=== PATIENT | male | born 1970 | race Caucasian/White ===

== ENCOUNTER 2019-08-10 20:04 | Emergency (ER) | payer MEDICAID ==
[~2019-08-10] VITALS: Ht 188 cm; Wt 120.8 kg
[~2019-08-10 20:04] MED LIST: CARI350T PO; HYDR-4383 PO; NO HOME MEDS; PENI500T2 PO
[2019-08-10 20:05] VITALS: BP 115/79
[2019-08-10] MEDS ORDERED: ACET-2006 PO (20:49)
[2019-08-10] MEDS ORDERED: IBUP-1985 PO (20:49)
== END 2019-08-10 21:00 | disposition home or self-care (01) ==
LOC: ER 20:04
DX: M25.531 Pain in right wrist (principal); G89.29 Other chronic pain; Z98.890 Other specified postprocedural states; Z56.0 Unemployment, unspecified; Z88.6 Allergy status to analgesic agent; Z79.899 Other long term (current) drug therapy
CPT/HCPCS: 29125; 73110; 99283

== ENCOUNTER 2023-12-12 21:27 | Emergency (ER) | payer MEDICAID ==
[~2023-12-12] VITALS: Ht 188 cm; Wt 113.6 kg
[~2023-12-12 21:27] MED LIST changes: +IBUP-1985 PO
[2023-12-12] MEDS: acetaminophen 325mg tablet PO ONE (22:48)
[2023-12-12] MEDS: naproxen 500mg tablet PO ONE (22:48)
[2023-12-12] MEDS ORDERED: CYCL-1 PO (23:52)
[2023-12-13] MEDS ORDERED: HYDROcodone/acetaminophen 10/325mg tab PO ONE
[2023-12-13 00:15] VITALS: BP 136/85; PULSE 84; TEMP 97.9; O2SAT 98
[2023-12-13 00:20] VITALS: RESP 18
[2023-12-13] MEDS: cyclobenzaprine 10mg tablet PO ONE (00:20)
[2023-12-13] MEDS: HYDROcodone/acetaminophen 10/325mg tab PO ONE (00:20)
== END 2023-12-13 00:23 | disposition home or self-care (01) ==
LOC: ER 21:28
DX: S20.211A Contusion of right front wall of thorax, initial encounter (principal); G89.29 Other chronic pain; M54.9 Dorsalgia, unspecified; Z88.6 Allergy status to analgesic agent; Z79.1 Long term (current) use of non-steroidal anti-inflammatories (NSAID); Z79.899 Other long term (current) drug therapy; Z98.890 Other specified postprocedural states; Z56.0 Unemployment, unspecified
CPT/HCPCS: 71101; 99283; 99284